=== PATIENT | female | born 2000 | race Caucasian/White ===

== ENCOUNTER 2018-04-30 11:04 | Outpatient (REF) | payer OTHER, SELFPAY ==
[2018-04-30 22:42] LABS: Cholesterol 177 mg/dL (50-200); HDL Cholesterol 59 mg/dL (40-60); LDL CHOLESTEROL 97 mg/dL (<100); Triglyceride 135 mg/dL (30-150)
== END 2018-04-30 11:05 ==
LOC: NCHCN 11:04
PROVIDERS: PCP Nurse Practitioner Family; Visit Provider Registered Nurse
DX: E66.9 Obesity, unspecified (principal)
CPT/HCPCS: 80061; 83721

== ENCOUNTER 2021-01-21 13:56 | Outpatient (REF) | payer OTHER, SELFPAY ==
--- NOTE | 2021-01-21 09:35 | PAPFT_PTH ---
PATIENT: Sahra Ruiz LOC: [facility] U#:[id number] AGE/SX: 20/F ROOM: RE01/21/[address]: Argelia Tapia : 2000 BED: DIS: 01/21/2021 SPEC #: [id number] RECD: 01/21/21 17:05 STATUS: AVELINA REShabbir #: [id number] SERVANDO: 01/21/21 09:[address]: Argelia Tapia DEPT: [facility] Cytology RECD BY: Jodie Isaac ENTERED: 01/21/21 17:05 SP TYPE: PAPFT OTHR DR: Sandi Maher Tissues: 1 - CX/ENDOCX FOR PAP SMEARS Procedures: PAP THIN PREP/[facility] Screening Comments: [id number]
[2021-01-21 14:21] LABS: Calculated LDL 98 mg/dL (<100); Cholesterol 167 mg/dL (<200); HDL Cholesterol 50 mg/dL (40-60); TSH 2.48 uIU/mL (0.36-3.74); Triglyceride 97 mg/dL (<150)
[2021-01-24 12:00] LABS: Prolactin 12.4 ng/mL (See Table)
[2021-01-24 12:06] LABS: FSH 7.5 mIU/mL (See Note)
[2021-01-27 15:41] LABS: Testosterone, Total 51 ng/dL (8-60)
== END 2021-01-21 13:57 | disposition home or self-care (01) ==
LOC: NCHCN 13:56
PROVIDERS: PCP Nurse Practitioner Family; Visit Provider Registered Nurse
DX: Z00.00 Encounter for general adult medical examination without abnormal findings (principal); N91.1 Secondary amenorrhea; Z12.4 Encounter for screening for malignant neoplasm of cervix; Z13.220 Encounter for screening for lipoid disorders
CPT/HCPCS: 80061; 84403; 88142; 83001; 84146; 84443

== ENCOUNTER 2021-03-30 14:05 | Outpatient (REF) | payer OTHER, SELFPAY ==
[2021-04-01 11:47] LABS: COVID-19 RT-PCR UVMMC Result Negative (Negative)
== END 2021-03-30 14:06 | disposition home or self-care (01) ==
LOC: NCHCN 14:05
PROVIDERS: PCP Nurse Practitioner Family; Visit Provider Registered Nurse
DX: J06.9 Acute upper respiratory infection, unspecified (principal); Z20.822 Contact with and (suspected) exposure to COVID-19
CPT/HCPCS: U0003

== ENCOUNTER 2021-04-27 13:46 | Outpatient (REF) | payer OTHER, SELFPAY ==
[2021-04-28 12:48] LABS: COVID-19 RT-PCR UVMMC Result Negative (Negative)
== END 2021-04-27 13:47 | disposition home or self-care (01) ==
LOC: NCHCN 13:46
PROVIDERS: PCP Nurse Practitioner Family; Visit Provider Nurse Practitioner Community Health
DX: Z20.822 Contact with and (suspected) exposure to COVID-19 (principal); R05 Cough
CPT/HCPCS: U0003